=== PATIENT | female | born 1985 | race Caucasian/White ===

== ENCOUNTER 2021-03-26 19:49 | Emergency (ER) | payer OTHER ==
[2021-03-26 20:29] VITALS: TEMP 98
[2021-03-26 20:35] VITALS: RESP 16
[2021-03-26 20:37] LABS: Anisocytosis Slight; Basophils % (A) 1 %; Eosinophils % (A) 0 %; HCT 37.3 % (34.0-46.0); HGB 12.4 gm/dL (11.4-16.0); Lymphocytes # (A) 1.3 k/uL (1.0-4.8); Lymphocytes % (A) 15 %; MCH 31.8 pg (25.0-35.0); MCHC 33.3 g/dL (31.0-37.0); MCV 95.5 fL (80.0-100.0); Mean Platelet Volume 7.4; Monocytes # (A) 0.4 k/uL (0-1.0); Monocytes % (A) 5 %; Neutrophils # (A) 6.3 k/uL (1.3-7.7); Neutrophils % (A) 75 %; Platelet Count 393 k/uL (150-450); RBC 3.91 m/uL (3.80-5.40); RDW 16.5 % (11.5-15.5); WBC 8.5 k/uL (3.8-10.6)
[2021-03-26] MEDS ORDERED: LORazepam 2 MG/ML INJ IV STA (20:39)
[2021-03-26 20:46] LABS: African American GFR (CKD) >90 (>60 ml/min/1.73 sqM); Alcohol <10 mg/dL; Anion Gap 16 mmol/L; Blood Urea Nitrogen 15 mg/dL (7-17); Calcium 9.2 mg/dL (8.4-10.2); Carbon Dioxide 17 mmol/L (22-30); Chloride 102 mmol/L (98-107); Glucose 114 mg/dL (74-99); Non-African American GFR(CKD) >90 (>60 ml/min/1.73 sqM); Potassium 3.8 mmol/L (3.5-5.1); Sodium 135 mmol/L (137-145)
--- NOTE | 2021-03-26 20:49 | ED ---
General Adult HPI - General Chief complaint: Seizure Stated complaint: Seizure Time Seen by Provider: 03/26/21 20:24 Source: patient, EMS Mode of arrival: EMS Limitations: no limitations - History of Present Illness Initial comments: Dictation was produced using [employer] dictation software. please excuse any grammatical, word or spelling errors. Chief Complaint: 36-year-old female brought in by EMS for seizure History of Present Illness: 36-year-old female presents to the emergency room for seizure. Patient has history of alcohol withdrawal seizures. She drinks half a pint of vodka daily. She has not had any alcohol in the last 2 days. Last year she had a similar episode which she was told was secondary to alcohol withdrawal seizure. Patient states she went to [employer] with her boyfriend. They had an uneventful dinner. She was feeling well at that time. The left gluteal did grab some groceries. Patient remembers is waking up being on the ground. There is some concern that she was postictal. Currently at the bedside patient has no complaints. She does feel kind of jittery. She is trying to quit alcohol by herself. She is seeing outpatient treatment is sitting outpatient medications for this. The ROS documented in this emergency department record has been reviewed and confirmed by me. Those systems with pertinent positive or negative responses have been documented in the HPI. All other systems are other negative and/or noncontributory. PHYSICAL EXAM: General Impression: Alert and oriented x3, not in acute distress HEENT: Normocephalic atraumatic, extra-ocular movements intact, pupils equal and reactive to light bilaterally, mucous membranes moist. Cardiovascular: Heart regular rate and rhythm Chest: Able to complete full sentences, no retractions, no tachypnea Abdomen: abdomen soft, non-tender, non-distended, no organomegaly Musculoskeletal: Pulses present and equal in all extremities, no peripheral edema Motor: no focal deficits noted Neurological: CN II-XII grossly intact, no focal motor or sensory deficits noted Skin: Intact with no visualized rashes Psych: Normal affect and mood ED course: 36-year-old well-appearing female presents to the emergency department for seizure. Signs upon arrival are within acceptable limits. Patient's well-appearing at the bedside. She does not appear to be showing severe withdrawal symptoms. It was recommended to patient that she have a new- onset seizure workup given that is not entirely obvious that patient had alcohol withdrawal seizure. She states she's never had any imaging of her brain. She is refusing any imaging. She wants to be discharge. She is however agreeable to laboratory evaluation. Labs unremarkable. Patient's or the emergency department for approximately 1 hour 30 minutes. She is notified that her laboratory evaluation is unremarkable. She denied any seizures while in the emergency department. She given some Ativan. She is given prescription for Librium. She is advised follow-up with primary care doctor. Boyfrienkatie bedside Monitor patient over the next couple days. Return precautions discussed. EKG interpretation: Ventricular rate while there, sinus tachycardia,. 134, QRS 86, QTC 500. No CO prolongation, no QTC prolongation, no ST or T-wave changes noted. Overall, this EKG is unremarkable - Related Data Previous Rx's Medication Instructions Recorded chlordiazePOXIDE HCl [Librium] 25 mg PO QID 3 Days #15 capsule 03/26/21 Allergies Allergy/AdvReac Type Severity Reaction Status Date / Time amoxicillin AdvReac Nausea & Verified 03/26/21 20:36 Vomiting Review of Systems ROS Statement: Those systems with pertinent positive or pertinent negative responses have been documented in the HPI. ROS Other: All systems not noted in ROS Statement are negative. Past Medical History Additional Past Medical History / Comment(s): substance use (alcohol), seizures History of Any Multi-Drug Resistant Organisms: None Reported Additional Past Surgical History / Comment(s): bilateral ankles Past Psychological History: Depression Smoking Status: Never smoker Past Alcohol Use History: Abuse, Daily Past Drug Use History: None Reported General Exam Limitations: no limitations Course Vital Signs 03/26/21 03/26/21 19:49 20:34 Temperature 98.0 F Pulse Rate 114 H 102 H Respiratory 18 16 Rate Blood Pressure 128/109 127/96 O2 Sat by Pulse 100 100 Oximetry Medical Decision Making - Lab Data Result diagrams: 03/26/21 20:30 03/26/21 20:30 Lab Results 03/26/21 03/26/21 Range/Units 20:30 20:30 WBC 8.5 (3.8-10.6) k/uL RBC 3.91 (3.80-5.40) m/uL Hgb 12.4 (11.4-16.0) gm/dL Hct 37.3 (34.0-46.0) % MCV 95.5 (80.0-100.0) fL MCH 31.8 (25.0-35.0) pg MCHC 33.3 (31.0-37.0) g/dL RDW 16.5 H (11.5-15.5) % Plt Count 393 (150-450) k/uL MPV 7.4 Neutrophils % 75 % Lymphocytes % 15 % Monocytes % 5 % Eosinophils % 0 % Basophils % 1 % Neutrophils # 6.3 (1.3-7.7) k/uL Lymphocytes # 1.3 (1.0-4.8) k/uL Monocytes # 0.4 (0-1.0) k/uL Eosinophils # 0.0 (0-0.7) k/uL Basophils # 0.0 (0-0.2) k/uL Anisocytosis Slight Sodium 135 L (137-145) mmol/L Potassium 3.8 (3.5-5.1) mmol/L Chloride 102 (98-107) mmol/L Carbon Dioxide 17 L (22-30) mmol/L Anion Gap 16 mmol/L BUN 15 (7-17) mg/dL Creatinine 0.74 (0.52-1.04) mg/dL Est GFR (CKD-EPI)AfAm >90 (>60 ml/min/1.73 sqM) Est GFR (CKD-EPI)NonAf >90 (>60 ml/min/1.73 sqM) Glucose 114 H (74-99) mg/dL Calcium 9.2 (8.4-10.2) mg/dL Serum Alcohol <10 mg/dL Disposition Clinical Impression: Seizure Disposition: HOME SELF-CARE Condition: Fair Instructions (If sedation given, give patient instructions): Recurrent Seizures in Adults (ED) Additional Instructions: Today your workup was not complete. He preferred to be discharged without complete workup. Nonetheless it is important to seek medical attention if you have another seizure. There is some concern that you are having seizures that's caused by something besides alcohol withdrawal. Prescriptions: chlordiazePOXIDE HCl [Librium] 25 mg PO QID 3 Days #15 capsule Is patient prescribed a controlled substance at d/c from ED?: Yes If prescribed controlled substance>3 days was MAPS reviewed?: Prescribed <3 Days Referrals: Shilpi Zuleta MD [STAFF PHYSICIAN] - 1-2 days
[2021-03-26 21:46] VITALS: BP 131/91; PULSE 94
== END 2021-03-26 21:47 | disposition home or self-care (01) ==
LOC: EDBD → EC 19:49
DX: R56.9 Unspecified convulsions (principal); F10.231 Alcohol dependence with withdrawal delirium; F32.9 Major depressive disorder, single episode, unspecified; Z88.1 Allergy status to other antibiotic agents; Y90.9 Presence of alcohol in blood, level not specified
CPT/HCPCS: 99285; 96374; 36415; 93005; 80048; 85025; G0480; J2060; 80320

== ENCOUNTER 2021-09-14 23:47 | Emergency (ER) | payer OTHER ==
[2021-09-14 23:58] VITALS: TEMP 97.1
[2021-09-15] MEDS ORDERED: RX INFO: IV CONTRAST WAS GIVEN 1 EACH MISC MISCELLANE PRN (00:04)
[2021-09-15] MEDS ORDERED: SODIUM CHLORIDE 0.9% 1,000 ML IV ONE (00:54)
--- NOTE | 2021-09-15 01:00 | CT ---
EXAMINATION TYPE: CT angio lower extremity LT DATE OF EXAM: 09/15/2021 COMPARISON: None HISTORY: fall left knee pain. pt states recentlly had left knee meniscus tear 08-12-21 CT DLP: 1596.2 mGycm Automated exposure control for dose reduction was used. CONTRAST: Performed with IV Contrast, patient injected with 100 mL of Isovue 370. Images obtained from the level of L4 vertebra to the bottom of the left foot with IV contrast. There are Three-D postprocessed images. There is arterial flow in the left internal and external iliac arteries. There is arterial flow in th e left femoral artery and the profunda femoris artery. There is arterial flow in the popliteal and ti bial arteries and the tibial artery trifurcation. There is arterial flow within the anterior and post erior tibial arteries. There is flow in the posterior tibial artery at the ankle and in the plantar a spect of the foot. No significant flow seen in the dorsalis pedis artery. No evidence of hemodynamic stenosis. There is soft tissue swelling and fluid anterior to the distal femur. There is knee joint e ffusion. The patella is intact. No evidence of patella fracture. I see no bony destructive process. T here is no evidence of hemodynamic stenosis. There is no contrast extravasation. There is 1 cm calcif ication posterior to the knee joint that could relate to an old injury. IMPRESSION: No angiographic abnormality. Subcutaneous edema and fluid around the anterior aspect of the knee. Small knee joint effusion. No fr acture seen.
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
[2021-09-15] MEDS ORDERED: HYDROmorphone 0.5 MG/0.5 ML SYRINGE IVP STA (02:24)
[2021-09-15 03:34] VITALS: BP 113/86; PULSE 79; RESP 15
== END 2021-09-15 03:54 | disposition home or self-care (01) ==
LOC: EC 23:47
DX: S83.195A Other dislocation of left knee, initial encounter (principal); F32.A Depression, unspecified; G40.909 Epilepsy, unspecified, not intractable, without status epilepticus; W01.0XXA Fall on same level from slipping, tripping and stumbling without subsequent striking against object, initial encounter
CPT/HCPCS: 99284; 96374; 73706; J1170; Q9967

== ENCOUNTER 2024-02-22 09:53 | Emergency (ER) | payer OTHER ==
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
[2024-02-22 13:26] VITALS: RESP 16
[2024-02-22] MEDS: LORazepam 1 MG TAB PO STA (14:40)
[2024-02-22] MEDS: FAMOTIDINE 20 MG TAB PO STA (14:40)
[2024-02-22] MEDS: CALCIUM CARBONATE 500 MG CHEWABLE PO STA (14:40)
[2024-02-22] MEDS: KETOROLAC 15 MG/ML 1 ML VIAL IM STA (14:41)
[2024-02-22] MEDS: ACETAMINOPHEN TAB 500 MG TAB PO STA (14:41)
[2024-02-22] MEDS: QUEtiapine 25 MG TAB PO STA (14:52)
[2024-02-22] MEDS: MAG HYDROX/AL HYDROX/SIMETH 30 ML, HYOSCYAMINE ELIXIR 10 ML PO STA (14:53)
[2024-02-22] MEDS: QUEtiapine 50 MG TAB PO STA (15:32)
[2024-02-22 15:49] VITALS: BP 146/103; PULSE 98; TEMP 98.1
== END 2024-02-22 15:48 | disposition home or self-care (01) ==
LOC: SUPCPDRO 09:53 → EC 09:53
DX: F41.9 Anxiety disorder, unspecified (principal); Z88.0 Allergy status to penicillin; Z91.018 Allergy to other foods
CPT/HCPCS: 82075; 99285; 96372; J1885